=== PATIENT | female | born 1935 | race Caucasian/White ===

== ENCOUNTER 2016-08-30 17:29 | Emergency (ER) | payer MEDICARE ==
[2015-08-06 09:40] VITALS: BMI 16.2
[~2016-08-30 17:29] MED LIST: BAYER CHEWABLE81 MG PO; CALCIUM 600+D T1 TA1 PO; FERROUS SULFAT325 MG PO; GLUCOPHAGE500 MG PO; IBUPROFEN200 MG PO; LEVAQUIN500 MG PO; LISINOPRIL5 MG PO; LOPRESSOR25 MG PO; MAG-OX 400 MG400 MG PO; NITROSTAT0.4 MG SL; OXYBUTYNIN CHLOR5 MG PO; PEPCID20 MG PO; PERI-COLACE TAB1 TAB PO; PLAVIX75 MG PO; REPLENEX PO; SUPER B COMPLE150 MG PO; ZOCOR40 MG PO; ZOLOFT50 MG PO
[2016-08-30 18:04] LABS: BASOPHILS 0.1 % (0.0-2.0); EOSINOPHILS 1.6 % (0-7); HEMATOCRIT 36.6 % (36.0-48.0); HEMOGLOBIN 11.1 g/dL (12-16); IMMATURE GRANULOCYTES 0.3 % (0-5); LYMPHOCYTES 10.9 % (15-50); MCH 26.2 pg (26.0-34.0); MCHC 30.3 g/dL (31.0-37.0); MCV 86.5 fL (80.0-100.0); MEAN PLATELET VOLUME 11.5 fL (7.4-10.4); NEUTROPHILS 81.1 % (40-80); PLATELET COUNT 207 10x3/uL (130-400); RBC 4.23 10x6/uL (4.00-5.40); RDW 16.8 % (11.5-14.5); WBC 9.3 10x3/uL (4.8-10.8)
[2016-08-30 18:29] LABS: ALBUMIN 3.7 g/dL (3.4-5.0); ANION GAP 16.8 mmol/L (8-16); BILIRUBIN - TOTAL 0.36 mg/dL (0.2-1.3); CALCIUM 9.3 mg/dL (8.5-10.1); CARBON DIOXIDE 25.1 mmol/L (21.0-32.0); CREATININE - SERUM 0.9 mg/dL (0.6-1.3); POTASSIUM - SERUM 3.9 mmol/L (3.5-5.1); PROTEIN - SERUM 6.7 g/dL (6.4-8.2)
== END 2016-08-30 20:10 | disposition home or self-care (01) ==
LOC: D.ER 17:29
PROVIDERS: Emergency Medicine
DX: R60.0 Localized edema (principal); E11.65 Type 2 diabetes mellitus with hyperglycemia; F32.9 Major depressive disorder, single episode, unspecified; I10 Essential (primary) hypertension; E78.5 Hyperlipidemia, unspecified; I48.91 Unspecified atrial fibrillation; I49.3 Ventricular premature depolarization

== ENCOUNTER 2016-09-11 20:04 | Inpatient (IN) | payer MEDICARE ==
[~2016-09-11] VITALS: Ht 162.6 cm; Wt 50.5 kg
[2016-09-11 20:00] VITALS: BP 139/66
--- NOTE | 2016-09-11 20:20 | NUR ---
ARRIVED TO FLOOR VIA WHEELCHAIR. ORIENTED TO FLOOR, PERSONAL FINANCE INSTRUCTOR AT BEDSIDE TO OBTAIN VITALS. CALL LIGHT IN REACH. WILL CONTINUE TO MONITOR. SEE NURSE ASSESSMENT.
--- NOTE | 2016-09-11 21:29 | NUR ---
DR. THOMAS NASSAR FOR CLARIFICATION OF ORDERS, PT IS TO BE ADMITTED TO DR. CAMEJO.
[2016-09-11 21:48] LABS: BASOPHILS 0.1 % (0.0-2.0); EOSINOPHILS 1.3 % (0-7); HEMATOCRIT 34.7 % (36.0-48.0); HEMOGLOBIN 10.9 g/dL (12-16); IMMATURE GRANULOCYTES 0.1 % (0-5); LYMPHOCYTES 12.6 % (15-50); MCH 26.5 pg (26.0-34.0); MCHC 31.4 g/dL (31.0-37.0); MCV 84.4 fL (80.0-100.0); MEAN PLATELET VOLUME 11.6 fL (7.4-10.4); MONOCYTES 5.9 % (2-11); PLATELET COUNT 214 10x3/uL (130-400); RBC 4.11 10x6/uL (4.00-5.40); RDW 16.6 % (11.5-14.5); WBC 7.9 10x3/uL (4.8-10.8)
[2016-09-11 21:57] LABS: ALBUMIN 3.2 g/dL (3.4-5.0); ANION GAP 12.5 mmol/L (8-16); BILIRUBIN - TOTAL 0.43 mg/dL (0.2-1.3); CALCIUM 8.8 mg/dL (8.5-10.1); CARBON DIOXIDE 30.1 mmol/L (21.0-32.0); POTASSIUM - SERUM 3.6 mmol/L (3.5-5.1); PROTEIN - SERUM 6.4 g/dL (6.4-8.2)
--- NOTE | 2016-09-11 23:37 | NUR ---
16 NEPALI LUCAS CATHETER, CONCENTRATED YELLOW URINE TO BAG AND SAMPLE OBTAINED. 22 GAUGE TO LEFT FOREARM X 1 STICK. BUMEX 1MG IVP. FAMILY AT BEDSIDE, WILL CONTINUE TO MONITOR. CALL LIGHT IN REACH.
[2016-09-11 23:57] LABS: APPEARANCE HAZY (CLEAR); BILIRUBIN NEGATIVE (NEGATIVE); COLOR YELLOW (YELLOW); GLUCOSE 1000 mg/dL (NEGATIVE); KETONE NEGATIVE (NEGATIVE); LEUKOCYTE ESTERASE TRACE (NEGATIVE); NITRITE POSITIVE (NEGATIVE); PROTEIN 1+ mg/dL (NEGATIVE); UROBILINOGEN NORMAL (NORMAL)
[2016-09-12] VITALS: BP 143/84
[2016-09-12 00:03] LABS: BACTERIA MANY /hpf (NONE SEEN); EPITHELIAL CELLS OCC /hpf (0-5); GRANULAR CAST RARE /lpf (NONE SEEN); HYALINE CAST OCC /lpf (NONE SEEN); RED CELLS - URINE OCC /hpf (0-5)
[2016-09-12] MEDS ORDERED: FUROSEMIDE20 MG PO (01:02)
[2016-09-12] MEDS ORDERED: K-TAB10 MEQ PO (01:03)
[2016-09-12] MEDS ORDERED: GLUCOPHAGE500 MG PO ×2 (01:04)
[2016-09-12 04:00] VITALS: BP 154/88
--- NOTE | 2016-09-12 07:20 | NUR ---
PT SITTING UP IN BED SLEEPING NO S/S DISTRESS NOTED. AT BEDSIDE. WILL CONT TO MONITOR
[2016-09-12 08:56] VITALS: BP 133/78
--- NOTE | 2016-09-12 09:57 | NUR ---
PT PLACED ON TELE. RUNNING SINUS TACH WITH BBB AND PACS 104 BPM.
[2016-09-12 10:15] VITALS: Ht 162.6 cm; Wt 50.5 kg
[2016-09-12 12:00] VITALS: BP 145/71
[2016-09-12 17:37] LABS: CKMB 0.9 U/L (0.0-3.6); CREATINE KINASE 32 UL (21-215)
[2016-09-12 17:41] VITALS: BP 155/85
--- NOTE | 2016-09-12 17:48 | NUR ---
PT SITTING UP TO CHAIR DENIES NEEDS
[2016-09-12 17:55] LABS: TROPONIN-I 0.068 ng/mL (0.000-0.060)
--- NOTE | 2016-09-12 17:57 | NUR ---
LAB CALLED WITH CRITICAL TROPONIN. GE RICKS SAID TO LET [facility] KNOW. PAGED DR BLAND.
--- NOTE | 2016-09-12 18:07 | NUR ---
NOTIFIED [facility] OF ELEVATED TROPONIN
--- NOTE | 2016-09-12 19:25 | NUR ---
PT RECEIVED LYING IN BED RESTING QUIETLY AT THIS TIME. CONFUSED TO TIME, SITUATION, AND PLACE. CENTRAL LINE NOTED TO RT SUBCLAVIAN. DRESSING CDI. PT DENIES NEEDS AT THIS TIME. BED LOW. PHONE AND CALL LIGHT IN REACH. SRX2.
--- NOTE | 2016-09-12 19:25 | NUR ---
PT RECEIVED SITTING UP IN BED WITH SON AT BEDSIDE. S/L NOTED TO LEFT FOREARM. DRESSING CDI. LUCAS ATTACHED TO LEFT THIGH. DRAINING ANNA URINE. PT AAOX3. PT DENIES ANY PAIN AT THIS TIME. DENIES NEEDS. ASSESSMENT COMPLETED PER FLOWSHEET. BED LOW. PHONE AND CALL LIGHT IN REACH. SRX2.
[2016-09-12 20:00] VITALS: BP 142/82
--- NOTE | 2016-09-12 20:37 | NUR ---
NOTIFIED BY MANAGER REPORT AT THIS TIME OF PT HAVING A RUN OF 14 V-TACH. PT VITALS CHECKED AT THIS TIME. BP-142/82 PULSE-101 O2-91% ROOM AIR. PT AWAKE AND ALERT. DENIES ANY LIGHTHEADEDNESS OR DIZZINESS AT THIS TIME. WILL CONTINUE TO MONITOR. PT DENIES NEEDS. BED LOW. PHONE AND CALL LIGHT IN REACH. SRX2.
--- NOTE | 2016-09-12 22:29 | NUR ---
PM MEDS GIVEN AT THIS TIME. PT REQUESTS WASH CLOTH WITH SOAP AT THIS TIME. DENIES OTHER NEEDS. BED LOW. PHONE AND CALL LIGHT IN REACH. SRX2.
--- NOTE | 2016-09-12 23:12 | NUR ---
PT LUCAS CATHETER REMOVED AT THIS TIME DUE TO LEAKING. BULB DEFLATED BEFORE REMOVAL. PT TOLERATED WELL. DENIES NEEDS AT THIS TIME. BED LOW. PHONE AND CALL LIGHT IN REACH. SRX2.
[2016-09-12 23:40] LABS: CKMB 0.6 U/L (0.0-3.6); CREATINE KINASE 34 UL (21-215)
[2016-09-12 23:44] LABS: TROPONIN-I 0.069 ng/mL (0.000-0.060)
--- NOTE | 2016-09-13 00:19 | NUR ---
PT SITTING UP IN BED AT THIS TIME. STATES SHE IS GETTING READY TO GO TO SLEEP. DENIES NEEDS. BED LOW. PHONE AND CALL LIGHT IN REACH. SRX2.
--- NOTE | 2016-09-13 00:39 | NUR ---
EKG COMPLETED AT THIS TIME AND PLACED IN CHART. PT DENIES NEEDS. BED LOW. PHONE AND CALL LIGHT IN REACH. SRX2.
--- NOTE | 2016-09-13 01:45 | NUR ---
PT RESTING QUIETLY AT THIS TIME WITH EYES CLOSED. AROUSED EASILY. DENIES NEEDS AT THIS TIME. BED LOW. PHONE AND CALL LIGHT IN REACH. SRX2.
--- NOTE | 2016-09-13 03:20 | NUR ---
PT SITTING UP IN CHAIR RESTING QUIETLY AT THIS TIME. NO NEEDS NOTED.
[2016-09-13 04:00] VITALS: BP 154/68
--- NOTE | 2016-09-13 05:37 | NUR ---
PT SITTING UP IN BED WATCHING TV AND DRINKING COFFEE AT THIS TIME. BED LOW. PHONE AND CALL LIGHT IN REACH. SRX2. PT DENIES NEEDS.
--- NOTE | 2016-09-13 06:18 | NUR ---
BUMEX IVP ADMINISTERED AT THIS TIME PER ORDERS. FLUSHED FOLLOWING MED. PT DENIES NEEDS AT THIS TIME. BED LOW. PHONE AND CALL LIGHT IN REACH. SRX2.
--- NOTE | 2016-09-13 08:15 | NUR ---
PT SITTING ON SIDE OF BED EATING BREAKFAST TOLERATING WELL WILL MONITER
[2016-09-13 08:39] LABS: BASOPHILS 0.3 % (0.0-2.0); EOSINOPHILS 2.2 % (0-7); HEMOGLOBIN 11.7 g/dL (12-16); IMMATURE GRANULOCYTES 0.2 % (0-5); LYMPHOCYTES 11.6 % (15-50); MCH 26.4 pg (26.0-34.0); MCHC 31.6 g/dL (31.0-37.0); MCV 83.3 fL (80.0-100.0); MEAN PLATELET VOLUME 11.5 fL (7.4-10.4); NEUTROPHILS 79.7 % (40-80); PLATELET COUNT 226 10x3/uL (130-400); RBC 4.44 10x6/uL (4.00-5.40); RDW 16.5 % (11.5-14.5)
[2016-09-13 08:42] LABS: WBC 10.6 10x3/uL (4.8-10.8)
[2016-09-13 09:04] VITALS: BP 158/87
[2016-09-13 09:12] LABS: CREATINE KINASE 30 UL (21-215)
[2016-09-13 09:20] LABS: TROPONIN-I 0.074 ng/mL (0.000-0.060)
[2016-09-13 09:52] LABS: ALBUMIN 3.4 g/dL (3.4-5.0); BILIRUBIN - TOTAL 0.53 mg/dL (0.2-1.3); CALCIUM 8.8 mg/dL (8.5-10.1); CARBON DIOXIDE 28.8 mmol/L (21.0-32.0); MAGNESIUM - SERUM 1.3 mg/dL (1.8-2.4); PHOSPHOROUS 3.5 mg/dL (2.5-4.9); PROTEIN - SERUM 6.8 g/dL (6.4-8.2)
[2016-09-13 09:56] LABS: POTASSIUM - SERUM 2.8 mmol/L (3.5-5.1)
--- NOTE | 2016-09-13 10:12 | NUR ---
DR DOLL NOTIFIED OF 2.8 CRITICAL K HE ORDERED FOR PT TO HAVE 40 POTASSIUM DAILY PO
[2016-09-13 12:12] VITALS: BP 161/92
--- NOTE | 2016-09-13 12:15 | NUR ---
PT BS WOULD TO HO TO REGISTER ON MACHINE GE NAVARRO APN NOTIFIED WANTS TO HAVE HIGHEST AMOUNT OF INSULIN ON SLIDING SCALE 12 UNITS STUART WILL MONITER
--- NOTE | 2016-09-13 13:22 | NUR ---
PT RESTING IN BED WITH EYES OPEN CALL LIGHT IN REACH WILL MONITER NO PROBLEMS
[2016-09-13 16:25] VITALS: BP 155/52
--- NOTE | 2016-09-13 18:18 | NUR ---
PT IS ALERT. NO SS OF DISTRESS AT THIS TIME. WILL CONTINUE TO MOTNIOR.
[2016-09-13 20:19] VITALS: BP 92/43
--- NOTE | 2016-09-14 00:13 | NUR ---
rECIEVED PATIENT AND REPORT AT 1900, ALERT AND ORIENTED TO SELF AND TIME, CALM PLEASANT AND COOPERATIVE, CALL LIGHT AND WATER IN REACH, BED LOCKED AND IN LOWEST POSTION, CONTINUE PLAN OF CARE, CONTINUE TO MONITOR.
[2016-09-14 00:37] VITALS: BP 97/53
--- NOTE | 2016-09-14 03:14 | NUR ---
Patient resting quietly in bed, no distress noted.
[2016-09-14 04:23] VITALS: BP 113/55
[2016-09-14 05:10] LABS: BASOPHILS 0.4 % (0.0-2.0); HEMATOCRIT 31.2 % (36.0-48.0); HEMOGLOBIN 9.9 g/dL (12-16); IMMATURE GRANULOCYTES 0.1 % (0-5); LYMPHOCYTES 17.3 % (15-50); MCH 26.3 pg (26.0-34.0); MCHC 31.7 g/dL (31.0-37.0); MCV 82.8 fL (80.0-100.0); MEAN PLATELET VOLUME 11.3 fL (7.4-10.4); MONOCYTES 6.7 % (2-11); NEUTROPHILS 70.5 % (40-80); PLATELET COUNT 183 10x3/uL (130-400); RBC 3.77 10x6/uL (4.00-5.40); RDW 16.3 % (11.5-14.5)
[2016-09-14 05:50] LABS: ALBUMIN 2.6 g/dL (3.4-5.0); BILIRUBIN - TOTAL 0.4 mg/dL (0.2-1.3); CARBON DIOXIDE 29.4 mmol/L (21.0-32.0); CREATININE - SERUM 1.1 mg/dL (0.6-1.3); MAGNESIUM - SERUM 1.3 mg/dL (1.8-2.4); PROTEIN - SERUM 5.4 g/dL (6.4-8.2)
[2016-09-14 05:57] LABS: ANION GAP 11.1 mmol/L (8-16); POTASSIUM - SERUM 3.5 mmol/L (3.5-5.1)
--- NOTE | 2016-09-14 08:30 | NUR ---
PT SITTING ON SIDE OF BED EATING BREAKFAST TOLERATING WELL WILL MONITER
[2016-09-14 09:00] VITALS: BP 116/56
--- NOTE | 2016-09-14 14:43 | NUR ---
PT RESTING IN BED SON IN ROOM CALL LIGHT IN REACH NO PROBLEMS WILL MONITER
[2016-09-14 16:00] VITALS: BP 92/48
--- NOTE | 2016-09-14 16:02 | NUR ---
PT IS ALERT. NO SS OF DISTRESS. WILL CONTINUE TO MONITOR.
--- NOTE | 2016-09-14 18:32 | NUR ---
PT RESTING IN BED WITH EYES OPEN CALL LIGHT IN REACH WILL MONITER
--- NOTE | 2016-09-14 19:20 | NUR ---
PT. IN BR HAVING BM AND RETURNED TO BED WITH ROLLING WALKER WITHOUT ANY OTHER ASSISTANCE. ASSESSMENT COMPLETED. PT. DENIES ANY PAIN AND HAS NO VOICED NEEDS AT THIS TIME. CALL LIGHT WITHIN REACH.
[2016-09-14 20:00] VITALS: BP 95/47
--- NOTE | 2016-09-14 22:26 | NUR ---
PT. SITTING ON THE SIDE OF HER BED READING. PT. DENIES ANY NEEDS AND HAS HER CALL LIGHT WITHIN REACH. ASSOCIATE FINANCIAL ANALYST COMING TO MOVE PT'S BED MORE TOWARDS THE WINDOW SIDE OF THE ROOM SO PT. CAN USE HER ROLLING WALKER TO GET INTO THE BATHROOM.
--- NOTE | 2016-09-15 02:11 | NUR ---
PT. IN BED WITH HOB UP FOR COMFORT WITH EYES CLOSED AND RESP. EVEN. CALL LIGHT WITHIN REACH.
--- NOTE | 2016-09-15 04:06 | NUR ---
PT. UP TO BR WITH HER ROLLING WALKER WITHOUT ANY PROBLEMS. PT. DOESN'T HAVE HER HEARING AIDES IN AT THIS TIME BUT TALKING LOUDLY SHE CAN HEAR CONVERSATION. PT. DENIES ANY NEEDS AT THIS TIME AND IS GOING BACK TO BED AND HAS HER CALL LIGHT WITHIN REACH.
[2016-09-15 05:43] LABS: BASOPHILS 0.4 % (0.0-2.0); EOSINOPHILS 6.1 % (0-7); HEMATOCRIT 31.4 % (36.0-48.0); IMMATURE GRANULOCYTES 0.1 % (0-5); LYMPHOCYTES 15.9 % (15-50); MCH 26.2 pg (26.0-34.0); MCHC 31.8 g/dL (31.0-37.0); MCV 82.2 fL (80.0-100.0); MEAN PLATELET VOLUME 11.1 fL (7.4-10.4); MONOCYTES 7.7 % (2-11); NEUTROPHILS 69.8 % (40-80); PLATELET COUNT 203 10x3/uL (130-400); RBC 3.82 10x6/uL (4.00-5.40); RDW 16.2 % (11.5-14.5); WBC 7.9 10x3/uL (4.8-10.8)
[2016-09-15 06:19] LABS: ALBUMIN 2.6 g/dL (3.4-5.0); ANION GAP 13.3 mmol/L (8-16); BILIRUBIN - TOTAL 0.3 mg/dL (0.2-1.3); CALCIUM 8.6 mg/dL (8.5-10.1); CARBON DIOXIDE 26.6 mmol/L (21.0-32.0); POTASSIUM - SERUM 3.9 mmol/L (3.5-5.1); PROTEIN - SERUM 5.5 g/dL (6.4-8.2)
[2016-09-15 06:32] LABS: CREATININE - SERUM 1.4 mg/dL (0.6-1.3)
--- NOTE | 2016-09-15 07:58 | NUR ---
0745-PT IN BED ON BACK DENIES ANY PAIN. MONITOR SHOWES NORMAL SR, HR AT 73. LEFT FOREARM SL. RESP ARE EVEN.
[2016-09-15 08:00] VITALS: BP 116/58
--- NOTE | 2016-09-15 10:08 | NUR ---
0920-IV LEAKING TO LEFT FOREARM. 1005-IV RE-SITED WITH 22G TO RIGHT FOREARM X 1 STICK. LEFT FA CATH REMOVED WITH TIP INTACT.
[2016-09-15 12:00] VITALS: BP 114/64
[2016-09-15] MEDS ORDERED: ELIQUIS5 MG PO (12:35)
[2016-09-15] MEDS ORDERED: COREG12.5 MG PO (12:36)
[2016-09-15] MEDS ORDERED: COZAAR25 MG PO (12:36)
[2016-09-15] MEDS ORDERED: ISOSORBIDE MONO30 M1 PO (12:36)
[2016-09-15] MEDS ORDERED: BACTRIM DS TABL1 TAB PO (12:38)
[2016-09-15] MEDS ORDERED: FLORAJEN3 CAPS460 MG PO (12:39)
--- NOTE | 2016-09-15 15:46 | NUR ---
SCOTT WITH CM, PATIENT AND HER SON ARE DISCUSSING THINGS IN HER ROOM.
[2016-09-15 16:00] VITALS: BP 100/58
--- NOTE | 2016-09-15 18:12 | NUR ---
SALINE LOCK REMOVED WITH CATH TIP INTACT. VERBAL AND WRITTEN DISCHARGE INSTRUCTIONS GIVEN TO SON AND PATIENT. DISCHARGED HOME VIA WHEELCHAIR.
--- NOTE | 2016-09-16 15:00 | EC ---
PATIENT:DARLENE LYNN DATE OF SERVICE: 09/11/16 SEX: F MEDICAL RECORD: [id number] DATE OF : 31 LOCATION:D.M2 D.210 AGE OF PATIENT: 81 ADMISSION DATE: 09/11/16 REFERRING PHYSICIAN: INTERPRETING PHYSICIAN: GINGER BLAND MD ECHOCARDIOGRAM REPORT ECHO CHARGES 4 ECHO COMPLETE CLINICAL DIAGNOSIS: CHF HX CAD/CABG/STENTS ECHOCARDIOGRAPHIC MEASUREMENTS (adult normal given) AC root (d.<3.7cm) 2.1 LV Septum d (<1.2 cm> 0.8 Valve Excursion 0.6 LV Septum (systole) 0.9 Left Atria (s.<4.0cm> 3.8 LVPW d(<1.2cm) 1.0 RV (d.<2.3cm) 3.0 LVPW (sytole) 1.1 LV diastole(<5.6CM) 5.4 MV E-F(>70mm/sec) LV systole 4.7 LVOT Diameter 1.3 MV exc.(>10mm) 1.5 Est.ejection fraction (50-75%) Pericardial Effusion Y DOPPLER: LVIT A 59.0 E 131 LA RVSP 23 LVOT 62 AOP1/2T Asc. Ao 148 RVOT RA PA AV Gradient Peak 8.79 AV Mean 4.22 AV Area 1.0 MV Gradient Peak 7.45 MV Mean 2.18 MV Area COMMENTS: Commercial Real Estate Lender: Antonio MOON Net Coordinator:Diego Cardenas TAPE# PACS DATE OF SERVICE: 09/13/2016 Adequate 2D echo, color flow and spectral Doppler, and M-mode. LVH is present. LV internal dimensions are normal. 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 Aortic valve sclerosis without stenosis by Doppler interrogation. The left atrium is normal at 3.8 cm. Mitral valve shows no prolapse. ____ severe MR. Right-sided chamber is normal. Mild TR by color flow imaging. TRANSINT:[id number] Voice Confirmation ID: [id number] DOCUMENT ID: [id number] ECHOCARDIOGRAM REPORT [id number] DARLENE LYNN GINGER BLAND MD at 1500 CC: [id number] DICTATION DATE: 09/13/16 1523 WELDER APPRENTICE GAS: 09/14/16 1003 DIS IN 09/15/16 [facility] [address] [place] [address]
== END 2016-09-15 18:13 | disposition home or self-care (01) | DRG 292 ==
LOC: D.M2 20:04
PROVIDERS: Legal Medicine; ADMIT Family Medicine
PROC: 0T9B70Z Drainage of Bladder with Drainage Device, Via Natural or Artificial Opening (ICD-10-PCS; principal; 2016-09-11)
DX: I11.0 Hypertensive heart disease with heart failure (principal); N39.0 Urinary tract infection, site not specified; I50.21 Acute systolic (congestive) heart failure; E11.65 Type 2 diabetes mellitus with hyperglycemia; Z79.4 Long term (current) use of insulin; I25.10 Atherosclerotic heart disease of native coronary artery without angina pectoris; D50.9 Iron deficiency anemia, unspecified; E03.9 Hypothyroidism, unspecified; I48.91 Unspecified atrial fibrillation

== ENCOUNTER 2016-10-16 12:33 | Outpatient (CLI) | payer MEDICARE ==
[~2016-10-16] VITALS: Ht 162.6 cm; Wt 46.4 kg
[~2016-10-16 12:33] MED LIST changes: +BACTRIM DS TABL1 TAB PO; +COREG12.5 MG PO; +COZAAR25 MG PO; +ELIQUIS5 MG PO; +FLORAJEN3 CAPS460 MG PO; +FUROSEMIDE20 MG PO; +ISOSORBIDE MONO30 M1 PO; +K-TAB10 MEQ PO
[2016-10-16 14:44] VITALS: BP 111/54; Ht 162.6 cm; Wt 46.4 kg
--- NOTE | 2016-10-16 15:12 | NUR ---
1500 STARTED IV 20 GAUGE TO LEFT FOREARM WITHOUT PROBLEMS TO THE SITE NOTED. VSS. WILL STARTED BLOOD AFTER CHECKING PER TWO NURSES. TYLENOL AND BENADRYL GIVEN ORDERED.
--- NOTE | 2016-10-16 21:01 | NUR ---
1945 IV DC WITH CATHER TIP INTACT
== END 2016-10-16 21:03 | disposition home or self-care (01) ==
LOC: D.OPS 12:33
DX: D64.9 Anemia, unspecified (principal)

== ENCOUNTER → 2017-07-30 14:18 | Outpatient (CLI) | payer MEDICARE ==
[2016-10-16 14:44] VITALS: BMI 17.5
== END | disposition home or self-care (01) ==
LOC: D.RAD 14:18
DX: M54.16 Radiculopathy, lumbar region (principal); M25.552 Pain in left hip